=== PATIENT | female | born 1960 ===

== ENCOUNTER 2017-10-16 08:12 | Day surgery (SDC) | payer SELFPAY ==
[2017-10-13 08:59] VITALS: BMI 29.7
[2017-10-16] MEDS ORDERED: Midazolam 2 MG/2 ML VIAL ONE ×2 (09:02→09:39)
[2017-10-16] MEDS ORDERED: LIDOCAINE 2% PF (2ML) ONE (09:02)
[2017-10-16] MEDS ORDERED: Verapamil 2 ML ONE (09:15)
[2017-10-16] MEDS ORDERED: Nitroglycerin 50mg in D5W 50 MG/250 ML BOTTLE IV ONE (09:15)
[2017-10-16 10:01] LABS: ARTERIAL BLOOD GAS HCO3 24.9 mmol/L (21-28); ARTERIAL BLOOD GAS HEMOGLOBIN 12.5 g/dL (11.7-17.4); ARTERIAL BLOOD GAS O2 SAT 88.4 % (95-98); ARTERIAL BLOOD GAS PCO2 51 mm/Hg (35-45); ARTERIAL BLOOD GAS PH 7.33 (7.35-7.45); ARTERIAL BLOOD GAS PO2 51 mm/Hg (80-100); ARTERIAL BLOOD GAS TCO2 28.5 mmol/L (22-28)
[2017-10-16 10:07] LABS: VENOUS BLOOD GAS BASE EXCESS -0.9 mmol/L (0.0-2.0); VENOUS BLOOD GAS PCO2 50 mmHg (40-60); VENOUS BLOOD GAS PO2 38 mm/Hg (30-55); VENOUS BLOOD PH 7.32 (7.32-7.43)
--- NOTE | 2017-10-16 19:38 | CARDCATH ---
PROCEDURE DATE: 10/16/2017 INDICATIONS: The patient is a 57-year-old female referred to me for evaluation of symptoms of dyspnea with minimal activity and intermittent episodes of atypical chest pain with abnormal EKG variations noted over the last few years. She was brought to the microbiology lab assistant for further evaluation and treatment of symptoms of unexplained dyspnea on exertion with atypical chest pain. PROCEDURE PERFORMED: Complete heart catheterization with selective left and right coronary angiogram, right heart cath via right brachial venous access, left heart cath via right radial arterial access. A radial wrist band for hemostasis. TECHNIQUES OF PROCEDURE: After obtaining informed consent, the patient was brought to the cardiac cath suite in post-absorptive and non-sedated state. The patient was prepped and draped in the usual sterile fashion. A 2% lidocaine was used for infiltration of anesthesia. Using modified Seldinger technique, a 6-Surinamese sheath was introduced into the right brachial vein which was upsized to a 7-Surinamese sheath. Subsequently, a 6-Surinamese sheath was introduced into the right radial artery. Right heart cath with hemodynamics and saturations were obtained through the right brachial venous access. RIGHT HEART CATH FINDINGS: RA pressure of 14/7 with mean RA pressure of 8 mmHg. RV 39/9 with RVEDP of 18 mmHg. PA pressure is 36/17 with mean PA pressure of 24 mmHg. Pulmonary capillary wedge pressure 15 mmHg mean. LEFT HEART CATH HEMODYNAMICS: Left ventricular end-diastolic pressure was 19 mmHg. LV 127/7 with LVEDP of 25. Aortic pressure was 126/69 with mean aortic pressure of 89. Using the thermodilution method, cardiac output was calculated to be 4.47 L per minute with a cardiac index of 2.69 L/min per square meter ____ body surface area. PA saturation 73%. AO saturation 86.5%. CORONARY ANATOMY: Left main is a short segment and essentially non-existent. It bifurcates into circumflex and LAD. Left circumflex is a medium-sized vessel, runs in the groove, gives off a small obtuse marginal branch. Left anterior descending comes off the left main artery and gives off a medium-sized diagonal branch with nonobstructive disease. Mid LAD has nonobstructive 30% to 40% stenosis. RCA is a large-sized vessel, gives off right PDA and PLV branches, nonobstructive. IMPRESSION: Nonobstructive coronary artery disease. Normal cardiac output with borderline elevated filling pressures. RECOMMENDATIONS: Continue aggressive medical management with risk factor modification, evaluate the patient for underlying bronchial reactive airway disease and sleep disorder, hypoxemia. The patient can be discharged to home and follow with Dr. Grande in 1 to 2 weeks' time. Naman Grande MD
[2017-10-17 12:42] VITALS: RESP 16; O2SAT 94
== END 2017-10-16 14:40 | disposition home or self-care (01) ==
LOC: C.CATHLAB 08:12
PROVIDERS: ATTEND Internal Medicine Interventional Cardiology
DX: I25.10 Atherosclerotic heart disease of native coronary artery without angina pectoris (principal); R06.09 Other forms of dyspnea
CPT/HCPCS: 82803; 93460; J1644; J2001; J2250; J3010; Q9967

== ENCOUNTER 2018-08-02 08:48 | Outpatient (CLI) | payer SELFPAY | END 2018-08-02 08:49 | disposition home or self-care (01) | LOC: C.LAB 08:48 | DX: R31.29 Other microscopic hematuria (principal) ==